=== PATIENT | female | born 1985 | race Caucasian/White ===

== ENCOUNTER 2017-12-06 07:16 | Day surgery (SDC) | payer OTHER ==
--- NOTE | 2017-11-27 18:50 | HP ---
PREOPERATIVE HISTORY AND PHYSICAL: DATE OF SURGERY/ADMISSION: 12/06/17 [facility] DATE OF OFFICE VISIT/ENCOUNTER: 11/06/17 ATTENDING SURGEON: Cheli Graff MD * (DICTATED BY GWEN EARL) PROCEDURE: Right wrist ganglion cyst excision. CHIEF COMPLAINT: Pain and cyst, right wrist. HISTORY OF PRESENT ILLNESS: This is a 32-year-old female. 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 She is complaining of right wrist pain and a cyst- like structure on the dorsum of the wrist that has been present for some time now. She thinks that she has had pain in the wrist for about 7 years and it is related to a time when she was pushing herself up out of a pool and she felt some pain in the wrist. She has noticed what looks to be a cyst-like structure on the dorsal radial aspect of the wrist that has grown in size overtime. She recently had an MRI of the wrist, which showed a multiloculated dorsal wrist ganglion at the radiocarpal joint. She is interested and pursuing definitive treatment for this problem, and has consented to proceed with surgery in the form of a right wrist ganglion cyst excision. PAST MEDICAL HISTORY: Unremarkable. PAST SURGICAL HISTORY: . MEDICATIONS: vitamins. ALLERGIES: No known drug allergies. FAMILY MEDICAL HISTORY: Asthma, high cholesterol, and hypertension. 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 She denies tobacco use, illicit drug use, and does not drink alcohol. REVIEW OF SYSTEMS: General: Negative for fevers, chills, or night sweats. No known anesthesia problems. HEENT: Negative for headache, lightheadedness, or syncopal episodes. Integumentary: Negative for abrasions, lesions, or open wounds. Cardiothoracic: Negative for hypertension, chest pain, palpitations, or edema. Pulmonary: Negative for shortness of breath with exertion, chronic cough, COPD. GI: Negative for nausea, vomiting, diarrhea, constipation, or GERD. : Negative for nocturia, urinary frequency, urgency, history of UTIs, or kidney problems. Musculoskeletal: Positive for current complaint. Neurological: Negative for paresthesias, numbness, history of seizure, stroke, or epilepsy. Endocrine: Negative for diabetes or thyroid issues. Hematologic: Negative for easy bruising, anemia, excessive bleeding, or history of DVT. Infectious Disease: Negative for history of MRSA, hepatitis C, or HIV. PHYSICAL EXAMINATION GENERAL: Well-developed, well-nourished 32-year-old female, in no acute distress. VITAL SIGNS: Height 5 feet 3 inches, weight 152 pounds, pulse rate 85, blood pressure 117/62. HEENT: Normocephalic, atraumatic. Pupils are equal, round, and reactive to light and accommodation. Extraocular movements are intact. Throat is clear. NECK: Supple. No palpable lymph nodes. PULMONARY: Lungs are clear to auscultation bilaterally. No wheezes, rales, or rhonchi. CARDIOVASCULAR: Regular rate and rhythm. S1, S2. No murmurs, rubs, or gallops. No edema. ABDOMEN: Positive bowel sounds, soft, nontender. NEUROLOGICAL: Alert and oriented x3. Cranial nerves II through XII are intact. Sensation is intact to light touch. MUSCULOSKELETAL: On exam of her right wrist, there is no visible swelling or ecchymosis; however, there does appear to be a cyst-like structure on the dorsal radial aspect, particularly when she flexes her wrist, minimally tender to palpation increased pain with extension of the wrist particularly with weightbearing. There is a negative Tinel over the cyst. Neurovascular function is intact. IMAGING STUDIES: MRI of the right wrist shows a multiloculated dorsal wrist ganglion at the radiocarpal joint and the area of the scapholunate junction. IMPRESSION: Right wrist ganglion. PLAN: The patient is scheduled to undergo a right wrist ganglion cyst excision with Dr. Graff on 12/06/17. She will return to the office in 10 to 14 days postop for followup and suture removal. A prescription for Ultracet was e- scribed to the patient's pharmacy for postoperative pain management. GWEN EARL [id number]/[facility] #: [id number] [place]
[~2017-12-06 07:16] MED LIST: Buffered Lidocaine 0.9% SYRIN* 5 ML/SYR SYRINGE INTRADERM ONE
[2017-12-06] MEDS ORDERED: Ondansetron INJ* 2 MG/ML VIAL IV PRN (07:54)
[2017-12-06] MEDS ORDERED: Nalbuphine* 20 MG/ML 1 ML VIAL IV PRN (07:54)
[2017-12-06] MEDS ORDERED: Naloxone* 0.4 MG/ML 1 ML VIAL IV PRN (07:54)
[2017-12-06] MEDS ORDERED: PROCHLORPERAZINE INJ 5 MG/ML 2 ML VIAL IV PRN (07:54)
[2017-12-06] MEDS ORDERED: HYDROcodone/ACETAMIN 5-325 MG* 1 TAB PO PRN (07:54)
[2017-12-06] MEDS ORDERED: Acetaminophen TAB* 325 MG PO PRN (07:54)
[2017-12-06] MEDS ORDERED: fentaNYL* 50 MCG/ML 2 ML VIAL (100 MCG VIAL) ONE (07:58)
[2017-12-06] MEDS ORDERED: Midazolam* 1 MG/ML 2 ML VIAL (2 MG) ONE (07:59)
[2017-12-06] MEDS ORDERED: Lidocaine 1% INJ* 10 MG/ML 30 ML SDV ONE (08:18)
[2017-12-06] MEDS ORDERED: Propofol* 10 MG/ML 20 ML BTL IV PUSH ONE (08:45)
[2017-12-06] MEDS ORDERED: Lidocaine 2% PF * 5 ML VIAL ONE (08:45)
[2017-12-06] MEDS ORDERED: Ketorolac INJ* 30 MG/ML 1 ML VIAL ONE (08:45)
[2017-12-06 09:17] VITALS: BP 105/68
--- NOTE | 2017-12-06 12:37 | OP ---
DATE OF OPERATION: 12/06/17 [facility] DATE OF : 83 SURGEON: Cheli Graff MD VAC PRESS OPERATOR: GWEN Scott ANESTHESIA: Local MAC. PRE-OP DIAGNOSIS: Ganglion cyst on the right wrist. POST-OP DIAGNOSIS: Ganglion cyst on the right wrist. OPERATIVE PROCEDURE: Removal of right wrist ganglion cyst. ESTIMATED BLOOD LOSS: 0. TOURNIQUET TIME: About 20 minutes. 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 It bothers her when she does specific activity such as working out. MRI shows a multiloculated dorsal wrist ganglion. She presents for removal. DESCRIPTION OF PROCEDURE: The patient was brought to the operating room, was given a sedation anesthetic and a local infiltration of 10 cc of 1% plain lidocaine in the dorsal aspect of the right wrist. The skin of her right upper extremity was prepped and draped in the usual sterile fashion. The hand and wrist were exsanguinated and the tourniquet elevated to 250 mmHg. A transverse incision was made centered over the wrist and we dissected bluntly through the subcutaneous tissue. The EPL and 4th compartment tendons were retracted and under this I was able to visualize the broad-based multiloculated cyst. It was removed with a portion of the wrist capsule. The edges of the capsule were cauterized with the Bovie and the underlying scapholunate ligament was intact. The wound was irrigated and the skin edges reapproximated with 4-0 nylon suture. The wound was dressed with Xeroform, 4 x 4, Webril and an Omar wrap. The patient tolerated the procedure well and was brought to the recovery room in good condition. [id number]/[facility] #: [id number] [facility]
== END 2017-12-06 09:35 | disposition home or self-care (01) ==
LOC: OREAST 07:16
PROVIDERS: ATTEND Orthopaedic Surgery
DX: M67.431 Ganglion, right wrist (principal)
CPT/HCPCS: 81025; 88304; J1885; J2250; J2704; J3010

== ENCOUNTER 2018-12-05 03:21 | Inpatient (IN) | payer OTHER ==
[2018-12-05 05:42] LABS: ABS Basophils 0.1 10^3/ul (0-0.2); ABS Eosinophils 0.1 10^3/ul (0-0.6); ABS Lymphocytes 1.8 10^3/ul (1.0-4.8); ABS Monocytes 0.6 10^3/ul (0-0.8); ABS Neutrophils 11.6 10^3/ul (1.5-7.7); ABS Nucleated RBC 0 10^3/ul; Hematocrit 32 % (33-41); Hemoglobin 10.5 g/dL (12.0-16.0); Lymphocyte % 12.7 %; Mean Corpuscular HGB Conc 33 g/dL (31-36); Mean Corpuscular Hemoglobin 26 pg (27-31); Mean Corpuscular Volume 79 fL (80-97); Mean Platelet Volume 7.9 fL (7.4-10.4); Nucleated Red Blood Cells % 0.1; Platelet Count 277 10^3/uL (150-450); Red Blood Count 4.01 10^6 /uL (3.70-4.87); Red Cell Distribution Width 14 % (10.5-15); White Blood Count 14.3 10^3/uL (3.5-10.8)
[2018-12-05] MEDS ORDERED: OBEPIDURAL* 250 ML EPIDURAL ONE (06:14)
--- NOTE | 2018-12-05 06:24 | HP ---
General Information - Reason for Visit contractions - General Information Maternal Age: 33 Grav: 3 Para: 2 SAB: 0 IEA: 0 Estimated Due Date: 12/10/18 Determined By: Early Ultrasound Maternal Blood Type and Rh: B Positive - Results this Serology/RPR Result: Non-Reactive Rubella Result: Immune HBsAg Result: Negative HIV Result: Negative GBS Culture Result: Negative Past Medical History Delivery History: See Records Pertinent Past Medical History: See Records Pertinent Family History: See Records - Antepartal Records Antepartal Records: Reviewed, Complicated by: - desires vaginal after section Review of Systems Constitutional: Uncomfortable CV Complaint: No Respiratory: Shortness of Breath: No Gastrointestinal: No Nausea/Vomiting Genitourinary: No Dysuria, No Bleeding, No Leaking Fluid Musculoskeletal: Contractions Neurological: No Headache Movement: Normal Exam Allergies/Adverse Reactions: Allergies No Known Allergies Allergy (Verified 12/05/18 06:11) T: 98.9 P : 91 BP : 127/82 RR: 20 Lab Values - Entire Visit: Laboratory Tests 12/05/18 12/05/18 05:31 05:31 WBC 14.3 H RBC 4.01 Hgb 10.5 L Hct 32 L MCV 79 L MCH 26 L MCHC 33 RDW 14 Plt Count 277 MPV 7.9 Neut % (Auto) 81.4 Lymph % (Auto) 12.7 [place] % (Auto) 4.5 Eos % (Auto) 1.0 Baso % (Auto) 0.4 Absolute Neuts (auto) 11.6 H Absolute Lymphs (auto) 1.8 Absolute Monos (auto) 0.6 Absolute Eos (auto) 0.1 Absolute Basos (auto) 0.1 Absolute Nucleated RBC 0 Nucleated RBC % 0.1 Blood Type B Positive - Measurements Height: 5 ft 3 in Weight: 181 lb Weight in lbs: 181.399165 Body Mass Index (BMI): 32.1 Pre- Weight: 138 lb Weight Gained This : 43 lbs and 0 ozs - Exam Breast: Breast Exam Deferred CVA: No CVA Tenderness Extremities: No Edema Heart: Normal Rhythm/Heart Sounds HEENT: No Significant Findings Lungs: Clear Bilaterally Rectal: Rectal Exam Deferred Reflexes: DTR 2+ Thyroid: No Thyromegaly - Abdominal Exam Abdomen Exam: Non-Tender - Ultrasound/Biophysical Profile Ultrasound Status: Not Done Targeted Exam Findings Cervical Exam: 2cm Effacement: 80% Station: -2 Presenting Part: Vertex Membrane Status: Intact EFM Findings - External Monitor Findings Baseline Heart Rate: 140 External Monitor Findings: Accelerations Present, No Pattern of Variable or Late Decelerations, Variability Moderate Contractions: Regular - q 5'
[2018-12-05] MEDS ORDERED: Famotidine TAB* 20 MG PO PRN (06:48)
[2018-12-05] MEDS ORDERED: Sodium Citrate/Citric Acid* 15 ML UDC PO PRN (06:48)
[2018-12-05] MEDS ORDERED: EPHEDrine (Pressors)* 50 MG/ML VIAL IV PUSH PRN ×2 (06:48)
[2018-12-05] MEDS ORDERED: Phenylephrine 40 MCG/ML SYRINGE IV PUSH PRN ×2 (06:48)
[2018-12-05] MEDS ORDERED: Lactated Ringers 1000 ML Bag* 1,000 ML IV ONE ×2 (06:48→09:55)
[2018-12-05] MEDS ORDERED: OBEPIDURAL* 250 ML EPIDURAL SCH (07:00)
[2018-12-05] MEDS ORDERED: Lactated Ringers 1000 ML Bag* 1,000 ML IV SCH ×3 (07:00→10:00)
[2018-12-05] MEDS ORDERED: Oxytocin in LR* 20 UNITS/1,000 ML BAG IVPB ONE (08:43)
[2018-12-05] MEDS ORDERED: Acetaminophen TAB* 325 MG PO PRN (09:31)
[2018-12-05] MEDS ORDERED: Glycerin ADULT SUPP PR PRN (09:31)
[2018-12-05] MEDS ORDERED: Buffered Lidocaine 1% SYRIN* 1 ML/SYRINGE INTRADERM ONE (09:55)
[2018-12-05] MEDS: Ibuprofen TAB* 600 MG PO PRN ×2 (12:27→20:00)
[2018-12-05] MEDS: Witch Hazel PAD* JAR TOPICAL PRN (14:34)
[2018-12-05] MEDS: Dibucaine 1% 28.35 GM TUBE PR PRN (14:35)
[2018-12-05] MEDS: Docusate CAP* 100 MG PO SCH (14:35)
[2018-12-05] MEDS ORDERED: Lidocaine 1% INJ* 10 MG/ML 30 ML SDV ONE (16:57)
--- NOTE | 2018-12-05 17:29 | PROCNOTE ---
[facility] OB: Delivery Note - Delivery A Date of : 12/05/18 Time of : 08:48 [place] Weight at : 6 lb 11 oz Score 1 Minute: 8 Score 5 Minutes: 8 Gestational Age in Weeks and Days at Delivery: 39 Weeks and 2 Days Delivery Method: Spontaneous Vaginal Labor: Spontaneous Reason for Section: successful Did Patient attempt ?: Yes, Successful Amniotic Fluid: Clear Estimated Blood Loss: 200 Anesthesia/Analgesia: CEI for Labor Delivered By: Marek Valenzuela - Nursery Level of Nursery: Regular/Bedside - Perineum Perineal Injury: 2nd Degree Perineal Repair: By Delivering Practioner - reapir with 3-0 and 4-0 vicryl - Events Delivery Events of Note: Pitocin Only After Delivery Delivery Events of Note Comment: baby with good fhr throughout and good tone and breathing and heart rate. Initially poor color despite crying and baby given initila blow by and then cpap through mask with a good response - Risk for Falls Other Risk for Falls: none
[2018-12-06 06:57] LABS: ABS Basophils 0 10^3/ul (0-0.2); ABS Eosinophils 0.2 10^3/ul (0-0.6); ABS Lymphocytes 2.2 10^3/ul (1.0-4.8); ABS Monocytes 0.6 10^3/ul (0-0.8); ABS Nucleated RBC 0 10^3/ul; Eosinophil % 1.1 %; Hematocrit 25 % (33-41); Hemoglobin 8.1 g/dL (12.0-16.0); Mean Corpuscular HGB Conc 33 g/dL (31-36); Mean Corpuscular Hemoglobin 26 pg (27-31); Mean Corpuscular Volume 80 fL (80-97); Nucleated Red Blood Cells % 0; Platelet Count 213 10^3/uL (150-450); Red Blood Count 3.08 10^6 /uL (3.70-4.87); Red Cell Distribution Width 14 % (10.5-15)
[2018-12-06] MEDS: Ferrous Gluconate TAB* 324 MG TAB PO SCH ×2 (07:20→20:16)
[2018-12-06] MEDS: Ibuprofen TAB* 600 MG PO PRN ×3 (07:20→22:01)
[2018-12-06] MEDS: Docusate CAP* 100 MG PO SCH ×4 (07:20→20:16)
[2018-12-06] MEDS: Simethicone TAB* 80 MG TAB.CHEW PO SCH (07:32)
[2018-12-07] MEDS: Witch Hazel PAD* JAR TOPICAL PRN (07:48)
[2018-12-07] MEDS: Dibucaine 1% 28.35 GM TUBE PR PRN (07:48)
[2018-12-07] MEDS: Ibuprofen TAB* 600 MG PO PRN (07:48)
[2018-12-07] MEDS: Docusate CAP* 100 MG PO SCH (07:48)
[2018-12-07] MEDS: Ferrous Gluconate TAB* 324 MG TAB PO SCH (07:48)
[2018-12-07 08:22] VITALS: BP 131/72
== END 2018-12-07 10:24 | disposition home or self-care (01) | DRG 807 ==
LOC: MCHOBOUT 03:21 → MCHOB 06:07
PROVIDERS: ADMIT Obstetrics & Gynecology; ATTEND Obstetrics & Gynecology
PROC: 10E0XZZ Delivery of Products of Conception, External Approach (ICD-10-PCS; principal; 2018-12-05)
PROC: 0KQM0ZZ Repair Perineum Muscle, Open Approach (ICD-10-PCS; 2018-12-05)
PROC: 4A1HXCZ Monitoring of Products of Conception, Cardiac Rate, External Approach (ICD-10-PCS; 2018-12-05)
PROC: 10907ZC Drainage of Amniotic Fluid, Therapeutic from Products of Conception, Via Natural or Artificial Opening (ICD-10-PCS; 2018-12-05)
DX: O34.211 Maternal care for low transverse scar from previous cesarean delivery (principal); Z37.0 Single live birth; Z3A.39 39 weeks gestation of pregnancy; O90.81 Anemia of the puerperium; O70.1 Second degree perineal laceration during delivery
CPT/HCPCS: 36415; 85025; 86850; 86900; 86901; A9270-GY